=== PATIENT | female | born 1940 | race Caucasian/White ===

== ENCOUNTER → 2018-08-20 07:27 | Outpatient (CLI) | payer MEDICARE, OTHER ==
--- NOTE | ~2018-08-20 | HEMODYNAMI ---
PATIENT:VIPUL CARTER MEDICAL RECORD: [id number] : 36 [facility] [id number] ADMISSION DATE: 08/20/18 Generatedon:08/20/20188:44 Patient name: VIPUL CARTER Patient #: [id number] SSN: : 1940 Date of study: 08/20/2018 Page: Of Hemodynamic Procedure Report Patient Data Patient Demographics Procedure consent was obtained First Name: VIPUL Gender: Female Last Name: RAUL : 1940 Middle Initial: FABIANA Age: 78 year(s) Patient #: [id number] Race: Unknown Additional ID: [id number] Contact details [address]: [address] [place] [address] State: [place] City: [place] Zip code: [address] Past Medical History Allergies: No known allergies Admission Admission Data Admission Date: 08/20/2018 Admission Time: 7:27 Procedure Procedure Types Cath Procedure Peripheral Cath Diagnostic Procedure Miscellaneous Aspiration/Injection (Joint) Procedure Description Procedure Date Procedure Date: 08/20/2018 Procedure Start Time: 8:26 Procedure Staff Name Function Leon Argueta MD Ordering physician Bruce Dockery MD Performing Physician ZACKERY MARIE RT Monitor Lesli Cruz RN Nurse Procedure Data Cath Procedure Fluoroscopy Diagnostic fluoroscopy Total fluoroscopy Time: 0.3 time: 0.3 min min Diagnostic fluoroscopy Total fluoroscopy dose: 6 dose: 6 mGy mGy Hemodynamics Rest Pre Cath Intra NCS Post Cath Procedure Log Time Note 8:09:03 ZACKERY MARIE RT (R) sent for patient. Start room use. 8:09:04 Time tracking: Regular hours (M-F 7:00 - 5:00) 8:09:55 Patient received from Outpatients to IR Alert and oriented. Tansferred to table in Supine position. 8:10:02 Correct patient and procedure confirmed by team. 8:10:06 Signed procedure consent form obtained from patient. 8:11:31 8:11:42 Pre-procedure instructions explained to patient. 8:11:45 Pre-op teaching completed and patient verbalized understanding. 8:11:59 Is the patient allergic to Iodine/contrast media? No. 8:12:02 Is patient on blood thinner?Yes 8:17:06 Right Hip was prepped with betadine and draped in sterile fashion. 8:21:13 Patient allergic to No known allergies 8:25:11 Physician arrived 8:25:11 --------ALL STOP TIME OUT------ 8:25:13 Final Timeout: patient, procedure, and site verified with staff and physician. All members of the team are in agreement. 8:25:16 Right groin site verified by team. 8:25:29 Sedation plan: Local Anesthetic Medication:Lidocaine 8:25:53 Procedure started. 8:25:53 Full Disclosure recording started 8:26:06 Local anesthetic to Right Hip with Lidocaine 1% by ZACKERY PERERA (R).INITIAL ACCESS ONLY 8:26:15 SAFE-T PLUS MYELOGRAM TRAY opened to sterile field. 8:35:55 Procedure ended.(Physican Out) 8:36:05 Fluoroscopy time 00.30 minutes. 8:36:09 Flurop Dose total: 6 8:36:09 Fluoroscopy dose: 6 mGy 8:37:59 bandaide applied site stable pt sent home Device Usage Item Name Manufacture Quantity Catalog Hospital Part Current Minimal Lot# / Number Charge Number Stock Stock Serial# Code SAFE-T CareFusion 1 [id number] PLUS MYELOGRAM TRAY Signature Audit [place] Stage Time Signature Unsigned Intra-Procedure 08/20/2018 ZACKERY PERERA 8:44:20 AM (R) Signatures Monitor : ZACKERY PERERA Signature : Date : Time : [facility] [address] [place] [address]
== END | disposition home or self-care (01) ==
LOC: D.RAD 07:27
PROVIDERS: ATTEND Orthopaedic Surgery
DX: M16.11 Unilateral primary osteoarthritis, right hip (principal)

== ENCOUNTER → 2018-08-24 06:50 | Outpatient (CLI) | payer MEDICARE, OTHER ==
--- NOTE | ~2018-08-24 | HEMODYNAMI ---
PATIENT:VIPUL CARTER MEDICAL RECORD: [id number] : 36 LOCATION:[facility] ADMISSION DATE: 08/24/18 Generatedon:08/24/20188:26 Patient name: VIPUL CARTER Patient #: [id number] SSN: : 1940 Date of study: 08/24/2018 Page: Of Hemodynamic Procedure Report Patient Data Patient Demographics Procedure consent was obtained First Name: VIPUL Gender: Female Last Name: RAUL : 1940 Middle Initial: FABIANA Age: 78 year(s) Patient #: [id number] Race: Unknown Additional ID: [id number] Contact details [address]: [address] [place] [address] State: [place] City: [place] Zip code: [address] Past Medical History Allergies: No known allergies Admission Admission Data Admission Date: 08/24/2018 Admission Time: 6:50 Procedure Procedure Types Cath Procedure Peripheral Cath Diagnostic Procedure Miscellaneous Aspiration/Injection (Joint) Procedure Description Procedure Date Procedure Date: 08/24/2018 Procedure Start Time: 8:13 Procedure Staff Name Function Leon Argueta MD Ordering physician Bruce Dockery MD Performing Physician ZACKERY MARIE RT Monitor Lesli Cruz RN Nurse Vincent Andre RT Scrub Hemodynamics Rest Pre Cath Intra NCS Post Cath Procedure Log Time Note 7:52:21 Vincent Andre RT (R) (CV) sent for patient. Start room use. 7:52:23 Time tracking: Regular hours (M-F 7:00 - 5:00) 7:52:36 Patient received from Outpatients to IR Alert and oriented. Tansferred to table in Prone position. 7:52:43 Correct patient and procedure confirmed by team. 7:52:46 Signed procedure consent form obtained from patient. 7:53:03 7:53:41 Patient allergic to No known allergies 7:53:51 Is the patient allergic to Iodine/contrast media? No. 7:53:57 Is patient on blood thinner?Yes 7:56:15 Lumbar area was prepped with betadine and draped in sterile fashion 8:08:08 Physician arrived 8:09:25 --------ALL STOP TIME OUT------ 8:09:26 Final Timeout: patient, procedure, and site verified with staff and physician. All members of the team are in agreement. 8:12:53 Lumbar site verified by team. 8:13:38 Local anesthetic to Lumbar area with Lidocaine 1% by Bruce Dockery MD.INITIAL ACCESS ONLY 8:20:29 Procedure ended.(Physican Out) 8:21:31 Post Lumbar area:stable. band aid applied to site, patient sent home. 8:26:07 KIT EPIDURAL CATHETERIZATION opened to sterile field. Device Usage Item Name Manufacture Quantity Catalog Hospital Part Current Minima l Lot# / Number Charge Number Stock Stock Serial# Code KIT EPIDURAL Teleflex 1 [id number] CATHETERIZATION Signature Audit [place] Stage Time Signature Unsigned Intra-Procedure 08/24/2018 ZACKERY MARIE RT 8:26:43 AM (R) Signatures Monitor : ZACKERY MARIE RT Signature : Date : Time : [facility] [address] [place] [address]
== END | disposition home or self-care (01) ==
LOC: D.RAD 06:50
PROVIDERS: ATTEND Orthopaedic Surgery
DX: M54.16 Radiculopathy, lumbar region (principal)

== ENCOUNTER 2018-11-27 08:00 | Outpatient (CLI) | payer MEDICARE, OTHER ==
--- NOTE | ~2018-11-27 | HEMODYNAMI ---
PATIENT:VIPUL CARTER MEDICAL RECORD: [id number] : 36 LOCATION:[facility] ADMISSION DATE: 11/27/18 Generatedon:11/27/20189:14 Patient name: VIPUL CARTER Patient #: [id number] SSN: : 1940 Date of study: 11/27/2018 Page: Of Hemodynamic Procedure Report Patient Data Patient Demographics First Name: VIPUL Gender: Female Last Name: RAUL : 1940 Middle Initial: FABIANA Age: 78 year(s) Patient #: [id number] Race: Unknown Additional ID: [id number] Contact details Address: [address] [place] [address] State: [place] City: [place] Zip code: [address] Past Medical History Allergies: No known allergies Admission Admission Data Admission Date: 11/27/2018 Admission Time: 8:00 Procedure Procedure Types Cath Procedure Peripheral Cath Diagnostic Procedure Miscellaneous Aspiration/Injection (Joint) Procedure Description Procedure Date Procedure Date: 11/27/2018 Procedure Start Time: 9:08 Procedure Staff Name Brady Lincoln MD Performing Physician Leon Argueta MD Ordering physician ZACKERY MARIE RT Monitor Procedure Data Cath Procedure Fluoroscopy Diagnostic fluoroscopy Total fluoroscopy Time: 0.7 time: 0.7 min min Diagnostic fluoroscopy Total fluoroscopy dose: 10 dose: 10 mGy mGy Contrast Material Contrast Material Type Amount (ml) Isovue 300 5 Hemodynamics Rest Pre Cath Intra NCS Post Cath Procedure Log Time Note 8:44:19 ZACKERY MARIE RT (R) sent for patient. Start room use. 8:44:20 Time tracking: Regular hours (M-F 7:00 - 5:00) 8:44:31 Patient received from Outpatients to IR Alert and oriented. Tansferred to table in Supine position. 8:44:35 Correct patient and procedure confirmed by team. 8:44:37 8:44:42 Pre-procedure instructions explained to patient. 8:44:43 Pre-op teaching completed and patient verbalized understanding. 8:44:46 Family in waiting room. 8:44:53 Patient allergic to No known allergies 8:44:59 Is the patient allergic to Iodine/contrast media? No. 8:45:01 Is patient on blood thinner?Yes plavix. Last dose 11/24/18 8:45:42 8:45:53 Right Hip was prepped with betadine and draped in sterile fashion. 8:52:48 Physician arrived 8:53:19 --------ALL STOP TIME OUT------ 8:53:22 Final Timeout: patient, procedure, and site verified with staff and physician. All members of the team are in agreement. 8:53:32 Right hip site verified by team. 8:55:53 Full Disclosure recording started 8:55:53 Procedure started. 8:55:57 SAFE-T PLUS MYELOGRAM TRAY opened to sterile field. 8:57:26 Local anesthetic to Right Hip with Lidocaine 1% by Kendall Lincoln MD.INITIAL ACCESS ONLY 9:09:40 Procedure ended.(Physican Out) 9:10:59 Fluoroscopy time 00.70 minutes. 9:11:05 Fluoroscopy dose: 10 mGy 9:11:05 Flurop Dose total: 10 9:11:10 Contrast amount: Isovue 200M 5ml. 9:11:10 Post procedure instruction explained to patient.Patient verbalizes understanding. 9:11:15 Post Right Hip:stable. band aid applied and patient sent home 9:12:48 Procedure and supply charges have been captured, reviewed, submitted and are correct. 9:12:51 End room use (Document Last) 9:13:01 Full Disclosure recording stopped Device Usage Item Name Manufacture Quantity Catalog Hospital Part Current Minimal Lot# / Number Charge Number Stock Stock Serial# Code SAFE-T CareFusion 1 [id number] PLUS MYELOGRAM TRAY Signature Audit [place] Stage Time Signature Unsigned Intra-Procedure 11/27/2018 ZACKERY MARIE RT 9:14:36 AM (R) Signatures Monitor : ZACKERY MARIE RT Signature : Date : Time : [place] [id number] [place] [address]
== END 2018-11-27 23:59 | disposition home or self-care (01) ==
LOC: D.SP 08:00
PROVIDERS: ATTEND Orthopaedic Surgery
DX: M16.11 Unilateral primary osteoarthritis, right hip (principal); Z01.812 Encounter for preprocedural laboratory examination

== ENCOUNTER → 2019-01-19 10:02 | Outpatient (CLI) | payer MEDICARE, OTHER ==
[2019-01-19 10:59] LABS: % SATURATION 22 % (15-55); IRON 65 ug/dl (35-150); TOTAL IRON BIND CAPACITY 291 ug/dl (260-445); UNSAT IRON BIND CAPACITY 226 ug/dl (150-375)
[2019-01-19 11:26] LABS: FERRITIN 67 ng/mL (3-244)
== END | disposition home or self-care (01) ==
LOC: D.LAB 10:02
PROVIDERS: ATTEND Family Medicine
DX: D64.9 Anemia, unspecified (principal); R12 Heartburn

== ENCOUNTER → 2019-11-10 11:09 | Outpatient (CLI) | payer MEDICARE, OTHER | END | disposition home or self-care (01) | LOC: D.CT 11:09 | PROVIDERS: ATTEND Family Medicine | DX: I65.23 Occlusion and stenosis of bilateral carotid arteries (principal) ==

== ENCOUNTER → 2019-12-29 10:19 | Outpatient (CLI) | payer MEDICARE, OTHER | END | disposition home or self-care (01) | LOC: D.US 10:19 | PROVIDERS: ATTEND General Practice | DX: R42 Dizziness and giddiness (principal); I65.01 Occlusion and stenosis of right vertebral artery; I65.23 Occlusion and stenosis of bilateral carotid arteries ==

== ENCOUNTER 2020-01-17 06:20 | Day surgery (SDC) | payer MEDICARE, OTHER ==
[~2020-01-17] VITALS: Ht 167.6 cm; Wt 72.7 kg
--- NOTE | ~2020-01-17 | HEMODYNAMI ---
PATIENT:VIPUL CARTER MEDICAL RECORD: [id number] : 36 LOCATION:[facility] ADMISSION DATE: 01/17/20 Generatedon:01/17/202011:34 Patient name: VIPUL CARTER Patient #: [id number] SSN: : 1940 Date of study: 01/17/2020 Page: Of Hemodynamic Procedure Report Patient Data Patient Demographics Procedure consent was obtained First Name: VIPUL Gender: Female Last Name: RAUL : 1940 [facility] Initial: FABIANA Age: 79 year(s) Patient #: [id number] Race: Unknown Additional ID: [id number] Contact details [address]: [address] [place] [address] State: [place] City: [place] Zip code: [address] Past Medical History Allergies: No known allergies Admission Admission Data Admission Date: 01/17/2020 Admission Time: 6:20 Procedure Procedure Types Cath Procedure Peripheral Cath Diagnostic Procedure 4-Vessel 4 Vessel Carotid Arterio Arch Procedure Description Procedure Date Procedure Date: 01/17/2020 Procedure Start Time: 9:42 Procedure End Time: 11:33 Procedure Staff Name Function Leon Argueta MD Ordering physician Napoleon Mccoy MD Performing Physician ZACKERY MARIE RT Monitor Vincent Andre RT Scrub Lesli Cruz RN Nurse Diallo RODRÍGUEZ RN Nurse Procedure Data Cath Procedure Fluoroscopy Diagnostic fluoroscopy Total fluoroscopy Time: time: 31.5 min 31.5 min Contrast Material Contrast Material Type Amount (ml) Visipaque 270 0 Isovue 300 245 Entry Location Entry Primary Successful Side Size Upsize Upsize Entry Closure Succes sful Closure Location (Fr) 1 (Fr) 2 (Fr) Remarks Device Remarks Femoral Right 5 Fr 6 Fr 6 Fr Exoseal artery Long Short Diagnostic catheters Device Type Used For End Catheter Placement DIAGNOSTIC Pigtail 5Fr catheter ([id number]) Procedure Medications Medication Administration Route Dosage Lidocaine 1% added to field 20 Heparin Flush Bag added to field 3 bags (1000units/500ml NS) Versed I.V. 1 mg Fentanyl I.V. 50 mcg Versed I.V. 0.5 mg Fentanyl I.V. 25 mcg Heparin Bolus I.V. 5000 units Versed I.V. 0.5 mg Fentanyl I.V. 25 mcg Hemodynamics Rest Heart Rate: 87 (bpm) Snapshots Pre Cath Intra NCS Post Cath Vital Signs Time Heart Resp SPO2 etCO2 NIBP (mmHg) Rhythm Pain Status Sedation Rate (ipm) (%) (mmHg) Level (bpm) 9:13:25 85 27 35.5 157/61(90) NSR 0 (11) , No 10(A) pain 9:17:47 86 10 100 35.5 152/68(110) NSR 0 (11) , No 10(A) pain 9:22:07 84 12 100 33.2 151/69(114) NSR 0 (11) , No 10(A) pain 9:26:23 89 12 100 34 149/80(110) NSR 0 (11) , No 10(A) pain 9:30:44 87 14 100 34 151/71(112) NSR 0 (11) , No 10(A) pain 9:35:04 86 27 100 33.3 150/68(114) NSR 0 (11) , No 10(A) pain 9:39:18 87 14 100 38.5 156/92(128) NSR 0 (11) , No 10(A) pain 9:43:38 82 37 100 1.5 154/67(110) NSR 2 (11) , 9(A) Uncomfortable 9:47:58 84 23 99 0.7 143/67(107) NSR 1 (11) , Very 9(A) mild 9:52:18 85 33 100 34.8 148/65(108) NSR 0 (11) , No 9(A) pain 9:56:38 85 14 98 35.5 152/68(107) NSR 0 (11) , No 9(A) pain 10:00:56 83 16 100 35.5 151/68(110) NSR 0 (11) , No 9(A) pain 10:05:16 83 26 100 35.5 148/70(107) NSR 0 (11) , No 9(A) pain 10:09:37 83 34 100 33.3 145/67(109) NSR 0 (11) , No 9(A) pain 10:13:57 84 11 100 24.2 134/69(99) NSR 0 (11) , No 9(A) pain 10:18:11 83 35 100 31 151/69(110) NSR 0 (11) , No 9(A) pain 10:22:31 84 31 100 13.6 160/71(108) NSR 0 (11) , No 9(A) pain 10:26:53 84 37 100 32.5 169/76(111) NSR 0 (11) , No 9(A) pain 10:31:19 84 30 100 29.5 153/74(119) NSR 0 (11) , No 9(A) pain 10:35:37 84 42 100 11.3 171/79(128) NSR 0 (11) , No 9(A) pain 10:40:05 83 16 99 25.7 165/67(109) NSR 0 (11) , No 9(A) pain 10:44:30 85 17 100 32.5 165/71(111) NSR 0 (11) , No 9(A) pain 10:48:56 86 18 100 27.2 164/71(113) NSR 0 (11) , No 9(A) pain 10:53:20 87 15 100 35.5 163/73(113) NSR 0 (11) , No 9(A) pain 10:57:45 85 17 100 28.7 165/73(120) NSR 0 (11) , No 9(A) pain 11:02:09 83 14 100 16.6 168/79(120) NSR 0 (11) , No 9(A) pain 11:06:35 84 16 99 0 184/76(130) NSR 0 (11) , No 9(A) pain 11:11:05 85 29 100 30.2 167/66(132) NSR 0 (11) , No 9(A) pain 11:15:28 86 18 100 32.5 156/79(118) NSR 0 (11) , No 9(A) pain 11:19:47 85 13 100 14.3 159/76(119) NSR 0 (11) , No 9(A) pain 11:24:08 84 15 100 0 171/83(127) NSR 0 (11) , No 9(A) pain 11:28:30 86 11 100 34 160/107(129) NSR 0 (11) , No 9(A) pain 11:32:29 0 No Cuff NSR 0 (11) , No 9(A) pain Medications Time Medication Route Dose Verified Delivered Reason Notes Effe ctiveness by by 9:40:56 Lidocaine 1% added 20ml Napoleon Bender for local to vial Darius Mccoy MD anesthetic field 9:42:53 Heparin Flush added 3 Napoleon Bender used for Bag to bags Darius Mccoy MD procedure (1000units/500ml field NS) 9:43:07 Versed I.V. 1 mg Napoleon Ballesteros for Anthony Mccoy RN sedation 9:43:19 Fentanyl I.V. 50 Napoleon Lesli for mcg Anthony Mccoy RN sedation 10:34:34 Versed I.V. 0.5 Napoleon Lesli for mg Anthony Mccoy RN sedation 10:34:43 Fentanyl I.V. 25 Napoleon Lesli for mcg Anthony Mccoy RN sedation 10:46:57 Heparin Bolus I.V. 5000 Napoleon Lesli units Anthony Mccoy RN, MD 11:02:55 Versed I.V. 0.5 Napoleon Lesli for mg Anthony Mccoy RN sedation 11:03:03 Fentanyl I.V. 25 Napoleon Lesli for mcg Anthony Mccoy RN sedation Procedure Log Time Note 8:45:35 Vincent Andre RT (R) (CV) sent for patient. Start room use. 8:45:36 Time tracking: Regular hours (M-F 7:00 - 5:00) 8:45:41 Plan of Care:Hemodynamics will remain stable., Cardiac rhythm will remain stable., Comfort level will be maintained., Respiratory function will remain adequate., Patient/ family verbilizes understanding of procedure., Procedure tolerated without complication., Recovers from procedure without complications.. 8:45:47 Patient received from Outpatients to IR Alert and oriented. Tansferred to table in Supine position. 8:45:49 Signed procedure consent form obtained from patient. 8:45:50 Warm blankets applied, and prachi hugger turned on for patient comfort. 8:45:50 Correct patient and procedure confirmed by team. 8:45:51 ECG and BP/O2 sat monitors applied to patient. 8:45:51 - 8:45:55 H&P Date Dictated: 01/17/2020 H&P Addendum completed by physician on day of procedure. (MUST COMPLETE FOR ALL OUTPATIENTS). 8:45:57 Pre-procedure instructions explained to patient. 8:45:58 Pre-op teaching completed and patient verbalized understanding. 8:46:00 Patient NPO since Midnight. 8:46:48 Patient allergic to No known allergies 8:46:51 Is the patient allergic to Iodine/contrast media? No. 8:46:52 Is patient on blood thinner?Yes, not taken x1 week 8:47:18 Patient diabetic? No. 8:47:22 - 8:47:23 ----Pre-sedation anethsthesia assessment.---- 8:47:26 Previous problem with sedation/anesthesia? No ? 8:47:27 Snore? Yes 8:47:29 Sleep apnea? No 8:47:31 Deviated septum? No 8:47:32 Opens mouth fully? Yes 8:47:35 Sticks out tongue? Yes 8:47:38 Airway obstruction? No ? 8:47:43 Dentures? Yes in tight 8:48:08 IV patent on arrival in right wrist with 0.9% NaCl at [facility]. 8:48:14 Right groin area was prepped with chlora-prep and draped in sterile fashion 8:48:24 Pre procedure: right dorsailis pedis pulse Doppler 8:48:27 Pre procedure: right posterior tibial pulse Doppler 8:48:29 Alarms reviewed by Edwin Colin 8:48:30 Sharps counted by scrub and verified by Christel 8:48:33 - 8:48:37 Use device set IR Diagnostic 8:48:38 ACIST Syringe (38444) opened to sterile field. 8:48:38 ACIST Hand Control (67464) opened to sterile field. 8:48:39 ACIST Manifold (33828) opened to sterile field. 8:48:39 Bag Decanter (2002S) opened to sterile field. 8:48:39 Sterile Angiographic Pack opened to sterile field. 8:48:40 Tegaderm 4 x 4 (1626W) opened to sterile field. 8:49:00 TUBING High Pressure Extension Tubing (Akhtar) (RB1125U) opened to sterile field. 8:49:01 WATTS 260 wire (Q99895) opened to sterile field. 8:49:01 SHEATH 5FR [place] (APH052) opened to sterile field. 8:49:02 MICROPUNCTURE 4FR Cook (Q40279) opened to sterile field. 8:49:10 DOC .035 wire (G95349) opened to sterile field. 9:11:52 A DIAGNOSTIC Pigtail 5Fr catheter ([id number]) opened to sterile field. 9:12:09 - 9:12:16 Vital chart was started 9:12:17 Baseline sample Acquired. 9:12:21 Full Disclosure recording started 9:12:23 - 9:27:13 GLIDE WIRE ANGLE 260cm (FD7761) opened to sterile field. 9:27:13 TORQUE DEVICE PLASTIC .038 ( TD01) opened to sterile field. 9:36:00 Physician arrived 9:37:29 --------ALL STOP TIME OUT------ 9:37:29 Final Timeout: patient, procedure, and site verified with staff and physician. All members of the team are in agreement. 9:37:32 Right groin site verified by team. 9:37:35 Fire Safety Assessment: A--An alcohol-based skin anteseptic being used preoperatively., C--Open oxygen or nitrous oxide is being used. 9:38:26 2) 60-89 Mildly reduced kidney function, and other findings (as for stage 1) point to kidney disease. 9:38:49 Maximum allowable contrast dose (3.7 X eGFR X 0.75)177.6 ml. 9:38:54 Sedation plan: IV Moderate Sedation Medication:Versed, Fentanyl 9:40:04 Procedure started. 9:40:56 Lidocaine 1% 20ml vial added to field was administered by Napoleon Mccoy MD; for local anesthetic; Verbal order read back and verified. 9:42:15 Local anesthetic to right femoral artery with Lidocaine 1% by Napoleon Mccoy MD.INITIAL ACCESS ONLY 9:42:53 Heparin Flush Bag (1000units/500ml NS) 3 bags added to field was administered by Napoleon Mccoy MD; used for procedure; Verbal order read back and verified. 9:43:07 Versed 1 mg I.V. was administered by Lesli Cruz RN; for sedation; Verbal order read back and verified. 9:43:19 Fentanyl 50 mcg I.V. was administered by Lesli Cruz RN; for sedation ; Verbal order read back and verified. 9:45:18 AMPLATZ Super Stiff 75cm wire ([id number]) opened to sterile field. 9:45:26 Access obtained with 4Fr micropunture. 9:45:49 A 5 Fr sheath was inserted into the Right Femoral artery 9:46:28 DOC wire advanced. 9:52:07 GLIDE CATHETER 5FR ANGLED 100cm (CG508) opened to sterile field. 10:30:11 Sheath upsized to a 6 Fr Long. 10:34:07 CXI Catheter 90cm (H94000) opened to sterile field. 10:34:34 Versed 0.5 mg I.V. was administered by Lesli Cruz RN; for sedation; Verbal order read back and verified. 10:34:43 Fentanyl 25 mcg I.V. was administered by Lesli Cruz RN; for sedation ; Verbal order read back and verified. 10:39:55 Cook RAABE 6FR. 90cm guide sheath opened to sterile field. 10:46:57 Heparin Bolus 5000 units I.V. was administered by Lesli Cruz RN; ; Verbal order read back and verified. 10:55:19 Inflate balloon Inflation number: 1 A Evercross 4 x 4 x 135 Balloon ([id number]) was prepped and advanced across the Undefined1 , then inflated to 20 ISAÍAS. 11:01:59 Place stent Inflation Number: 2 A Visipro 7 x 37 x 135 Stent ([id number]) was prepped and advanced across the Undefined1 . The stent was deployed at 12 ISAÍAS. Expiration date checked and verified. 11:02:55 Versed 0.5 mg I.V. was administered by Lesli Cruz RN; for sedation; Verbal order read back and verified. 11:03:03 Fentanyl 25 mcg I.V. was administered by Lesli Cruz RN; for sedation ; Verbal order read back and verified. 11:16:21 SHEATH 6FR [place] (UHB218) opened to sterile field. 11:17:00 CXI SUPPORT .035 135 CM STR catheter (L19060) opened to sterile field. 11:25:04 Procedure ended.(Physican Out) 11:25:11 Sheath upsized to a 6 Fr Short. 11:25:11 Sheath removed intact; hemostasis achieved with Exoseal to the Right Femoral artery. 11:31:01 Fluoroscopy time 31.50 minutes. 11:31:06 Dose Area Product 1116 mGy/cm. 11:31:30 Contrast amount:Visipaque 270 0ml. 11:31:52 Contrast amount:Isovue 300 245ml. 11:31:54 Sharps counted by scrub and verified by R.N. 11:31:59 Post Procedure Pulses reassessed and unchanged 11:32:06 Post right femoral artery:stable, soft, clean and dry 11:32:08 Vital chart was stopped 11:32:11 Operative report dictated upon procedure completion. 11:32:12 Post procedure instruction explained to patient.Patient verbalizes understanding. 11:33:39 Patient transfered to Outpatients with Stretcher. 11:33:41 Procedure ended. 11:33:41 Full Disclosure recording stopped Intervention Summary Intervention Notes Time ActionType Lesion and Equipment Used Action# Pressure Duration Attributes 10:55:19 Inflate Undefined1 Evercross 4 x 4 x 1 0 00:00 balloon 135 Balloon ([id number]) 11:01:[address] Place stent Undefined1 Visipro 7 x 37 x 2 0 00:00 135 Stent ([id number]) Device Usage Item Name Manufacture Quantity Catalog Number [facility] Minimal Lot# / Charge Number Stock Stock Serial# Code ACIST Syringe Acist 1 96362 [id number] 501345 25670 3 20 (25186) [employer] Inc ACIST Hand Acist 1 28760 823813 735692 87030 4 5 Control (29492) [employer] Inc ACIST Manifold Acist 1 03682 413081 104333 41656 0 5 (84502) [employer] Systems Inc Bag Decanter Microtek 1 2001S 080323 81425 52459 2 5 (2001S) Medical Inc. Sterile Cardinal 1 [id number] 484701 33355 9 5 Angiographic Pack Health Tegaderm 4 x 4 3M 1 1626W 610801 014684 38634 6 5 (1626W) TUBING High Merit 1 [id number] 646901 51372 34451 0 10 Pressure Medical Extension Tubing (Akhtar) (BU6708T) WATTS 260 wire Cook Medical 1 H15471 089268 63234 68359 7 5 (F76625) SHEATH 5FR Terumo 1 HGA245 145740 617444 08753 0 5 [place] (SWB280) MICROPUNCTURE 4FR Cook Medical 1 R03802 367160 736228 52982 7 5 Cook (L65131) DOC .035 wire Cook Medical 1 P65928 797508 98215 4 5 (G17793) DIAGNOSTIC Cardinal 1 [id number] 559344 923250 11879 6 5 Pigtail 5Fr Health catheter (254591L) GLIDE WIRE ANGLE Terumo 1 TW2256 889918 803404 30815 5 5 260cm (OR4473) TORQUE DEVICE Hargill 1 TD01 393649 672406 78196 9 5 PLASTIC .038 ( Scientific TD01) AMPLATZ Super Hargill 1 [id number] 345019 368937 21870 5 5 Stiff 75cm wire Scientific ([id number]) GLIDE CATHETER Terumo 1 CG508 701028 16028 52891 0 4 5FR ANGLED 100cm (CG508) CXI Catheter 90cm Cook Medical 1 A68937 366894 932284 99953 6 5 (Q49632) Cook RAABE 6FR. Cook Medical 1 P81806 865711 53162 7 5 90cm guide sheath Evercross 4 x 4 x Medtronic 1 [id number] 613480 786767 52918 7 5 135 Balloon ([id number]) Visipro 7 x 37 x Medtronic 1 YNW84-55-55-867 288554 138526 92590 7 5 135 Stent (EFH14-06-54-637) SHEATH 6FR Terumo 1 HFS247 022905 856918 26939 1 40 [place] (JNJ389) CXI SUPPORT .035 Cook [employer] 1 Y35327 217475 008796 14378 7 5 135 CM STR catheter (Z66092) Signature Audit [place] Stage Time Signature Unsigned Intra-Procedure 01/17/2020 ZACKERY MARIE RT 11:33:59 AM (R) [facility] [address] [place] [address]
[2020-01-17 07:01] LABS: BASOPHILS 0.4 % (0-2); EOSINOPHILS 1.3 % (0-7); HEMATOCRIT 38.2 % (36.0-48.0); HEMOGLOBIN 12.4 g/dL (12-16); IMMATURE GRANULOCYTES 0.2 % (0-5); LYMPHOCYTES 13.1 % (15-50); MCH 29.2 pg (26.0-34.0); MCHC 32.5 g/dL (31.0-37.0); MCV 90.1 fL (80.0-100.0); MEAN PLATELET VOLUME 9.2 fL (7.4-10.4); MONOCYTES 7.9 % (2-11); NEUTROPHILS 77.1 % (40-80); PLATELET COUNT 252 10x3/uL (130-400); RBC 4.24 10x6/uL (4.00-5.40); RDW 13.7 % (11.5-14.5); WBC 9.7 10x3/uL (4.8-10.8)
[2020-01-17 07:08] LABS: ANION GAP 11.3 mmol/L (8-16); CALCIUM 9.4 mg/dL (8.5-10.1); CREATININE - SERUM 0.9 mg/dL (0.6-1.3); POTASSIUM - SERUM 4.3 mmol/L (3.5-5.1)
[2020-01-17 07:13] LABS: APTT 25.8 SECONDS (22.8-39.4)
[2020-01-17 07:15] LABS: INR 0.96 (0.85-1.17); PROTIME 12.7 SECONDS (11.6-15.0)
[2020-01-17 07:42] VITALS: Ht 167.6 cm; Wt 72.7 kg
[2020-01-17] MEDS ORDERED: CO Q-10100 MG PO (07:57)
[2020-01-17] MEDS ORDERED: LIPITOR40 MG PO (07:57)
[2020-01-17] MEDS ORDERED: BAYER CHEWABLE81 MG PO (07:57)
[2020-01-17] MEDS ORDERED: NEXIUM20 MG PO (07:58)
[2020-01-17] MEDS ORDERED: VOLTAREN100 GM TOPICAL (07:58)
[2020-01-17] MEDS ORDERED: ROPINIROLE HCL0.5 MG PO (07:59)
[2020-01-17] MEDS ORDERED: COZAAR25 MG PO (07:59)
[2020-01-17] MEDS ORDERED: ULTRAM50 MG PO (07:59)
[2020-01-17] MEDS ORDERED: MULTI-DAY VITAM1 TAB PO (07:59)
[2020-01-17] MEDS ORDERED: VITAMIN E100 UNIT PO (08:00)
[2020-01-17] MEDS ORDERED: ASCORBIC ACID500 MG PO (08:00)
--- NOTE | 2020-01-17 12:15 | NUR ---
1139 PT RETURNING TO ROOM 2508 FROM RADIOLOGY VIA STRETCHER. VITAL SIGNS RECORDED ON POST PROCEDURE FORM AND IN PAPER CHART.
--- NOTE | 2020-01-17 12:27 | NUR ---
1225 PT STATES SHE WILL NEED A BEDPAN SOON, ONE TOOK TO ROOM AND PT WILL CALL WHEN SHE IS READY TO BE PLACED ON THE BEDPAN. PT IS EATING AT THE PRESENT TIME A FINGER FOOD SANDWICH.
--- NOTE | 2020-01-17 13:16 | NUR ---
1315 ROUNDS BY ALEXANDRIA JO RN.
== END 2020-01-17 15:10 | disposition home or self-care (01) ==
LOC: D.SP 06:20 → D.RAD 09:00 → EDSTATUS 09:00 → D.SP 15:10
PROVIDERS: ATTEND General Practice
DX: G45.8 Other transient cerebral ischemic attacks and related syndromes (principal)

== ENCOUNTER → 2020-02-11 12:25 | Outpatient (CLI) | payer MEDICARE, OTHER ==
[2020-01-17 07:42] VITALS: BMI 25.8
[~2020-02-11 12:25] MED LIST: ASCORBIC ACID500 MG PO; BAYER CHEWABLE81 MG PO; CO Q-10100 MG PO; COZAAR25 MG PO; LIPITOR40 MG PO; MULTI-DAY VITAM1 TAB PO; NEXIUM20 MG PO; ROPINIROLE HCL0.5 MG PO; ULTRAM50 MG PO; VITAMIN E100 UNIT PO; VOLTAREN100 GM TOPICAL
== END | disposition home or self-care (01) ==
LOC: D.MRI 12:25
PROVIDERS: ATTEND General Practice
DX: Z95.828 Presence of other vascular implants and grafts (principal); R53.1 Weakness